=== PATIENT | female | born 1935 | race Caucasian/White ===

== ENCOUNTER 2020-06-12 19:06 | Emergency (ER) | payer MEDICARE, OTHER ==
[~2020-06-12] VITALS: Ht 157.5 cm; Wt 56.2 kg
[~2020-06-12 19:06] MED LIST: ASPIRIN325 MG PO; ASPIRIN81 MG PO; ATENOLOL50 MG PO; EVISTA60 MG PO; FERROUS SULFAT324 MG PO; NORCO 7.5-3251 EACH PO; NORVASC5 MG PO; TRICOR145 MG PO; VASOTEC5 MG PO
--- NOTE | 2020-06-12 19:38 | Emergency Department Note ---
History of Present Illnes History of Present Illness Chief Complaint: General Medicine Complaints History of Present Illness This is a 84 year old female PRESENTS TO ED SP FALL; PT STATES, "I LOST MY BALANCE AND HIT THE BACK OF MY HEAD ON THE GROUND." DENIES LOC, ABRASION NOTED TO BACK OF HEAD . Historian: Patient, Family Member Arrival Mode: Car Onset (how long ago): hour(s) (1) Location: HEAD Quality: PAIN, SWELLING, BLEEDING Radiation: Reports non-radiation Severity: moderate Onset quality: sudden Duration (how long): hour(s) (1) Timing of current episode: constant Progression: unchanged Chronicity: new Context: Reports trauma/injury ( ABOVE) Relieving factors: none Exacerbating factors: none Associated symptoms: Reports other (LOW BACK PAIN) Treatments prior to arrival: none Past Medical/Family History Physician Review I have reviewed the patient's past medical and family history. Any updates have been documented here. Past Medical History Recent Fever: No Clinical Suspicion of Infectio: No New/Unexplained Change in Ment: No Social History Smoking Cessation: Never Smoker Alcohol Use: None Any Illegal Drug Use: No Family History Family history of heart diseas: No Review of Systems Review of Systems Constitutional: Reports no symptoms EENTM: Reports no symptoms Cardiovascular: Reports no symptoms Respiratory: Reports no symptoms Gastrointestinal: Reports no symptoms Genitourinary: Reports no symptoms Musculoskeletal: Reports as per HPI Integumentary: Reports no symptoms Neurological: Reports no symptoms Psychological: Reports no symptoms Endocrine: Reports no symptoms Hematological/Lymphatic: Reports no symptoms Physical Exam Related Data Allergies: Uncoded Allergies: SULFA (Allergy, Unknown, 06/07/15) Triage Vital Signs Vital Signs Date Time Temp Pulse Resp B/P (MAP) Pulse Ox O2 Delivery O2 Flow Rate FiO2 06/12/20 19:21 97.7 64 16 167/60 100 Room Air Vital signs reviewed: Yes Physical Exam CONSTITUTIONAL Constitutional: Present well-developed, Present well-nourished; Absent distressed HENT HENT: Present normocephalic, Present oropharynx clear/moist, Present nose n ormal, Present other (PT WITH ABRASION AND CONTUSION TO LEFT PARIETAL/OCCIPTAL SCALP) HENT L/R: Present left ext ear normal, Present right ext ear normal EYES Eyes: Reports PERRL, Reports conjunctivae normal NECK Neck: Present ROM normal PULMONARY Pulmonary: Present effort normal, Present breath sounds normal CARDIOVASCULAR Cardiovascular: Present regular rhythm, Present heart sounds normal, Present capillary refill normal, Present normal rate GASTROINTESTINAL Abdominal: Present soft, Present nontender, Present bowel sounds normal GENITOURINARY Genitourinary: Present exam deferred SKIN Skin: Present warm, Present dry MUSCULOSKELETAL Musculoskeletal: Present ROM normal, Present tenderness (MILD T8 TO T10 NO VERTEBREAL STEP OFFS, L3 TO L5 NO VERTERBRAL STEP OFFS) NEUROLOGICAL Neurological: Present alert, Present oriented x 3, Present no gross motor or sensory deficits PSYCHOLOGICAL Psychological: Present mood/affect normal, Present judgement normal Results Imaging Imaging results reviewed: Yes Impressions X-RAY THORACIC SPINE 3 VIEWS, X-RAY LUMBAR SPINE 4 VIEWS HISTORY: Pain. COMPARISON: None available. FINDINGS: Rightward convex curvature of the thoracolumbar spine. Osseous demineralization. Aortic calcifications. Surgical clips in the right axilla. No definitive fracture. Degenerative changes throughout spine. No dislocations. Left hip total arthroplasty hardware partially visualized. Calcific uterine fibroids. Suspect a 1.9 cm calcified gallstone or right renal calculus. IMPRESSION: No radiographic evidence of fracture. Osseous demineralization. A radiographically occult fracture cannot be excluded in the setting of osteoporosis. Dextroscoliosis of the thoracolumbar spine, and levoscoliosis of the lumbar spine.. Degenerative changes throughout spine hips and pelvis. Suspect a 1.9 cm calcified gallstone or right renal calculus and possibly a 1.2 cm left renal calculus. Signed by: Parmjit Aldridge DO on 06/12/2020 9:14 PM Dictated By: PARMJIT ALDRIDGE DO 13 Transcribed By: JACKIE on 06/12/202113 COPY TO: HAWA ROBLES MD~ Procedure: [id number] CT/CT BRAIN WO Exam Date: Exam Time: REPORT STATUS: Signed EXAMINATION: Head CT without contrast. HISTORY:Trauma, fall. COMPARISON:None. TECHNIQUE: Multidetector axial images were obtained from the foramen magnum to the vertex without contrast. The images were reconstructed using brain and bone algorithms. Thin section brain images were reformatted into coronal and sagittal planes. Dose modulation, iterative reconstruction, and/or weight based adjustment of the mA/kV was utilized to reduce the radiation dose to as low as reasonably achievable. Intravenous contrast: None IMAGE QUALITY: Acceptable. FINDINGS: Skull/scalp: Large left parieto-occipital scalp soft tissue edema/hematoma. No soft tissue emphysema or radiopaque foreign body. No acute depressed or displaced calvarial fracture. No lytic or blastic. lesions. No surgical changes. Parenchyma: Nonspecific bilateral frontoparietal confluent periventricular and patchy subcortical white matter hypodensity are likely related to small vessel ischemic changes. No acute hemorrhage, mass or acute major vascular territorial infarct. Arteries: No density suggestive of thrombosis. Mild atherosclerotic calcification in bilateral carotid siphon. Dural sinuses: No abnormal density suggestive of thrombosis. Ventricles: Mild compensated dilatation due to volume loss. No hydrocephalus. Extra-axial spaces: No abnormal density. Brain volume: Mild generalized cerebral volume loss. Craniocervical junction: No mass, Chiari malformation, or basilar invagination. Sella: No mass. Paranasal/mastoid sinuses: Imaged portions unremarkable. IMPRESSION: 1. Large left parieto-occipital scalp soft tissue edema/hematoma. No acute fracture. 2. No acute posttraumatic intracranial abnormality. 3. Moderate supratentorial white matter microvascular ischemic changes. 4. Mild generalized cerebral volume loss. Signed by: Dr. Reva Ross M.D. on 06/12/2020 8:29 PM Dictated By: REVA ROSS MD 28 Transcribed By: JACKIE on 06/12/202028 COPY TO: HAWA ROBLES MD~ Procedure: [id number] CT/CT CERVICAL SPINE WO Exam Date: Exam Time: REPORT STATUS: Signed History: Trauma, fall. Comparison studies: None Technique: Axial images were obtained through the cervical region.. Coronal and sagittal images reconstructed from the axial data. Dose modulation, iterative reconstruction, and/or weight based adjustment of the mA/kV was utilized to reduce the radiation dose to as low as reasonably achievable. Intravenous contrast: None Findings: Fractures: None. Soft tissue injuries: None. Atlantoaxial articulation: Intact. Alignment: Normal lordosis. No scoliosis. 3 mm grade 1 retrolisthesis at level C5-C6. Cervicomedullary junction: No abnormalities. The foramen magnum is patent. Soft tissues: Atherosclerotic calcification in bilateral carotid bulb. Vertebrae: No fractures, infection or neoplasm. Degenerative changes: Moderate degenerative changes in the anterior atlantodental joint. C2-C3: Advanced bilateral facet arthrosis without significant foraminal stenosis. C3-C4: Mild right foraminal stenosis due to facet and uncovertebral arthrosis. C5-C6: Moderate degenerative disc disease. Severe right foraminal stenosis due to facet and uncovertebral arthrosis. C6-C7: Mild left foraminal stenosis due to facet and uncovertebral arthrosis. Incidental finding: Pleural-based airspace opacities with calcification in bilateral (right more than left) lung apices may represent scarring. Incidental heterogeneous nodular mass centered in the posterior aspect of left lobe of thyroid gland/tracheoesophageal groove approximately measures 3.3 x 2.3 x 2 cm (SAT) may represent mass arising from the thyroid gland or parathyroid gland. IMPRESSION: 1. No acute cervical spine fracture or dislocation. 2. Ligament, spinal cord and or vascular abnormalities cannot be excluded on the basis of this examination. 3. Multilevel cervical spondylosis as detailed above. 4. Heterogeneous nodular mass along the posterior aspect of left lobe of thyroid gland/tracheoesophageal groove, can be further evaluated with dedicated nonemergent ultrasonogram for further assessment. Signed by: Dr. Reva Ross M.D. on 06/12/2020 8:39 PM Dictated By: REVA ROSS MD 38 Transcribed By: JACKIE on 06/12/202038 COPY TO: HAWA ROBLES MD~ Assessment & Plan Medical Decision Making MDM PT S/P FALL CT BRAIN, CT CERVICAL SPINE, XRAYS T SPINE, L SPINE ORDERED TO EVAL FOR FRACTURES, INTRACRANIAL INJURY(SUBDURAL BLEED, CONTUSION) Assessment & Plan Final Impression: (1) Abrasion head (2) Contusion of head (3) Hematoma of parietal scalp Depart Disposition: HOME, SELF-CARE Last Vital Signs Date Time Temp Pulse Resp B/P (MAP) Pulse Ox O2 Delivery O2 Flow Rate FiO2 06/12/20 19:21 97.7 64 16 167/60 100 Room Air Home Meds Reported Medications Hydrocodone Bit/Acetaminophen (NORCO 7.5-325 TABLET) 1 Each Tablet, 1 EA PO Q4HR PRN for PAIN, TAB 06/13/16 Amlodipine Besylate (NORVASC) 5 Mg Tab, 5 MG PO DAILY, #30 TAB 06/13/16 Ferrous Sulfate (FERROUS SULFATE) 324 Mg Tablet.dr, 324 MG PO DAILY 06/13/16 Aspirin (ASPIRIN) 325 Mg Tablet, 325 MG PO BID, TAB 06/13/16 Raloxifene Hcl (EVISTA) 60 Mg Tablet, 60 MG PO DAILY, #30 TAB 06/07/15 Fenofibrate (TRICOR) 145 Mg Tab, 145 MG PO DAILY, #30 TAB 06/07/15 Atenolol (ATENOLOL) 50 Mg Tablet, 25 MG PO DAILY 06/07/15 HAWA ROBLES MD Jun 12, 2020 19:38
--- NOTE | 2020-06-12 20:32 | Diagnostic Imaging Report ---
EXAMINATION: Head CT without contrast. HISTORY:Trauma, fall. COMPARISON:None. TECHNIQUE: Multidetector axial images were obtained from the foramen magnum to the vertex without contrast. The images were reconstructed using brain and bone algorithms. Thin section brain images were reformatted into coronal and sagittal planes. Dose modulation, iterative reconstruction, and/or weight based adjustment of the mA/kV was utilized to reduce the radiation dose to as low as reasonably achievable. Intravenous contrast: None IMAGE QUALITY: Acceptable. FINDINGS: Skull/scalp: Large left parieto-occipital scalp soft tissue edema/hematoma. No soft tissue emphysema or radiopaque foreign body. No acute depressed or displaced calvarial fracture. No lytic or blastic. lesions. No surgical changes. Parenchyma: Nonspecific bilateral frontoparietal confluent periventricular and patchy subcortical white matter hypodensity are likely related to small vessel ischemic changes. No acute hemorrhage, mass or acute major vascular territorial infarct. Arteries: No density suggestive of thrombosis. Mild atherosclerotic calcification in bilateral carotid siphon. Dural sinuses: No abnormal density suggestive of thrombosis. Ventricles: Mild compensated dilatation due to volume loss. No hydrocephalus. Extra-axial spaces: No abnormal density. Brain volume: Mild generalized cerebral volume loss. Craniocervical junction: No mass, Chiari malformation, or basilar invagination. Sella: No mass. Paranasal/mastoid sinuses: Imaged portions unremarkable. IMPRESSION: 1. Large left parieto-occipital scalp soft tissue edema/hematoma. No acute fracture. 2. No acute posttraumatic intracranial abnormality. 3. Moderate supratentorial white matter microvascular ischemic changes. 4. Mild generalized cerebral volume loss. Signed by: Dr. Reva Ross M.D. on 06/12/2020 8:29 PM
--- OUTSIDE RECORDS SUMMARY | 2020-06-12 20:40 | XMS REPORT | Continuity of Care Document ---
Author Author [facility] t Organization [facility] Address [address] [place] [address] Phone Unavailable Care Team Providers Care Etcher Hand Name Role Phone Kourtney ROBLES Attphys Unavailable Problems This patient has no known problems. Allergies, Adverse Reactions, Alerts This patient has no known allergies or adverse reactions. Medications This patient has no known medications. Procedures This patient has no known procedures. Results Test Description Test Time Test Comments Results Result Comments Source CT BRAIN WO 2020-06-12 20:20:00 [facility] 1935 Sex: F [facility] [address] [place], [place] [address] Patient Name: GARETT GRAVES MR #: [id number] : 1935 Age/Sex: 84/F Req #: [id number] [facility] Physician: Ordered by: HAWA ROBLES MD Report #: [id number] Location: ER Room/Bed: Procedure: [id number] CT/CT BRAIN WO Exam Date: Exam Time: REPORT STATUS: Signed EXAMINATION: Head CT without contrast. HISTORY:Trauma, fall. COMPARISON:None. TECHNIQUE: Multidetector axial images were obtained from the foramen magnum to the vertex without contrast. The images were reconstructed using brain and bone algorithms. Thin section brain images were reformatted into coronal and sagittal planes. Dose modulation, iterative reconstruction, and/or weight based adjustment of the mA/kV was utilized to reduce the radiation dose to as low as reasonably achievable. Intravenous contrast: None IMAGE QUALITY: Acceptable. FINDINGS: Skull/scalp: Large left parieto-occipital scalp soft tissue edema/hematoma. No soft tissue emphysema or radiopaque foreign body. No acute depressed or displaced calvarial fracture. No lytic or blastic. lesions. No surgical changes. Parenchyma: Nonspecific bilateral frontoparietal confluent periventricular and patchy subcortical white matter hypodensity are likely related to small vessel ischemic changes. No acute hemorrhage, mass or acute major vascular territorial infarct. Arteries: No density suggestive of thrombosis. Mild atherosclerotic calcification in bilateral carotid siphon. Dural sinuses: No abnormal density suggestive of thrombosis. Ventricles: Mild compensated dilatation due to volume loss. No hydrocephalus. Extra-axial spaces: No abnormal density. Brain volume: Mild generalized cerebral volume loss. Craniocervical junction: No mass, Chiari malformation, or basilar invagination. Sella: No mass. Paranasal/mastoid sinuses: Imaged portions unremarkable. IMPRESSION: 1. Large left parieto-occipital scalp soft tissue edema/hematoma. No acute fracture. 2. No acute posttraumatic intracranial abnormality. 3. Moderate supratentorial white matter microvascular ischemic changes. 4. Mild generalized cerebral volume loss. Signed by: Dr. Reva Ross M.D. on 06/12/2020 8:29 PM Dictated By: REVA ROSS MD 28 Transcribed By: JACKIE on 06/12/202028 COPY TO: HAWA ROBLES MD BREAST ULTRASOUND BILATERAL 2019-07-24 08:27:50 - BREAST ULTRASOUND BILATERALULTRASOUND OF BOTH BREASTS AND BOTH AXILLA: 07/20/2019CLINICAL: Followup to previous exam. Comparison is made to exams dated 07/20/2019 mammogram, 07/17/2018 ultrasound, 07/15/2017 ultrasound, and [facility] Real-time ultrasound of both breasts and both axilla and clinical breast exam were performed. No abnormalities were seen sonographically in the left breast or either axilla. The right breast has been surgically removed. The chest wall shows no abnormalities. IMPRESSION: BENIGN There is no sonographic evidence of malignancy. Patient has been informed that she should have screening mammogram and supplemental ultrasound in 1 year.Marce Rivera M.D. dm/:07/24/2019 08:27:50 copy to: Tylor Davis MD, ph: [phone], fax: [phone] Technologist: MIKEY CORTES, [facility]: BIRADS 1-2 Combo FU Letter Ultrasound BI- RADS: 2 Benign DIAG MAMM LEFT KORY CAD DIGITAL 2019-07-20 14:10:46 - DIAG MAMM LEFT KORY CAD DIGITALUNILATERAL LEFT DIGITAL DIAGNOSTIC MAMMOGRAM 3D/2D WITH CAD: 07/20/2019CLINICAL: Previous breast cancer. Digital breast tomosynthesis was performed in addition to routine CC and MLO views. Current mammographic images were evaluated by either a [employer] M-Vu or a [employer] ImageChecker CAD (computer aided detection system). Comparison is made to exams dated 07/17/2018 mammogram, 07/15/2017 mammogram, and 07/10/2016 [facility]. There are scattered fibroglandular tissues in the left breast. There are benign vascular calcifications in the left breast. No suspicious mass, architectural distortion, malignant type calcification, or lymph node abnormality detected. IMPRESSION: INCOMPLETE: ADDITIONAL IMAGING EVALUATION NEEDEDBilateral ultrasound pending for additional evaluation. Marce Rivera M.D. dm/:07/20/2019 14:10:46 Entry: - 07/24/2019 08:32:25copy to: Tlyor Davis MD, ph: [phone], fax: [phone] Technologist: Janice Shelby FW, [facility]-Mammogram BI-RADS: 0 Incomplete: Additional Imaging Evaluation Needed BREAST ULTRASOUND BILATERAL 2018-07-17 16:23:35 - DIAG MAMM BILATERAL KORY CAD DIGITALBILATERAL DIGITAL DIAGNOSTIC MAMMOGRAM 3D/2D WITH CAD: 07/17/2018CLINICAL: Previous breast cancer. Digital breast tomosynthesis was performed in addition to routine CC and MLO views. Current mammographic images were evaluated by either a [employer] M-Vu or a [employer] ImageChecker CAD (computer aided detection system). Comparison is made to exams dated 07/15/2017 m ammogram, 07/10/2016 mammogram, and 08/30/2015 mammogram - [facility]-. The tissue of the right breast is predominantly fatty. There are scattered fibroglandular tissues in the left breast. The right breast has been surgically removed. No suspicious mass, architectural distortion, malignant type calcification, or lymph node abnormality detected. INCOMPLETE ASSESSMENT: ADDITIONAL IMAGING EVALUATION RECOMMENDEDUltrasound pending for additional evaluation. Resume annual screening mammography in one year. - BREAST ULTRASOUND BILATERALULTRASOUND OF BOTH BREASTS AND BOTH AXILLA: 2017Comparison is made to exams dated 07/15/2017 mammogram, 07/10/2016 mammogram, and 08/30/2015 [facility]. Real-time ultrasound of both breasts and both axilla was performed. No abnormalities were seen sonographically in the left breast or either axilla. The right breast has been surgically removed. The chest wall shows no abnormalities. Clinical breast exam was unremarkable. IMPRESSION: BENIGN There is no sonographic evidence of malignancy. Patient has been informed that she should have a screening mammogram and supplemental ultrasound in 1 year.Marce Rivera M.D. dm/:07/17/2018 16:23:35 copy to: Tylor Davis MD, ph: [phone], fax: [phone] Technologist: Yu Monge , [facility]- letter sent: BIRADS 1-2 Combo FU Letter Mammogram BI-RADS: 0 Indeterminate Ultrasound BI-RADS: 2 Benign DIAG MAMM BILATERAL KORY CAD DIGITAL 2018-07-17 16:23:35 - DIAG MAMM BILATERAL KORY CAD DIGITALBILATERAL DIGITAL DIAGNOSTIC MAMMOGRAM 3D/2D WITH CAD: 07/17/2018CLINICAL: Previous breast cancer. Digital breast tomosynthesis was performed in addition to routine CC and MLO views. Current mammographic images were evaluated by either a [employer] M-Vu or a [employer] ImageChecker CAD (computer aided detection system). Comparison is made to exams dated 07/15/2017 m ammogram, 07/10/2016 mammogram, and 08/30/2015 mammogram - [facility]-. The tissue of the right breast is predominantly fatty. There are scattered fibroglandular tissues in the left breast. The right breast has been surgically removed. No suspicious mass, architectural distortion, malignant type calcification, or lymph node abnormality detected. INCOMPLETE ASSESSMENT: ADDITIONAL IMAGING EVALUATION RECOMMENDEDUltrasound pending for additional evaluation. Resume annual screening mammography in one year. - BREAST ULTRASOUND BILATERALULTRASOUND OF BOTH BREASTS AND BOTH AXILLA: 2017Comparison is made to exams dated 07/15/2017 mammogram, 07/10/2016 mammogram, and 08/30/2015 mammogram - [facility]-. Real-time ultrasound of both breasts and both axilla was performed. No abnormalities were seen sonographically in the left breast or either axilla. The right breast has been surgically removed. The chest wall shows no abnormalities. Clinical breast exam was unremarkable. IMPRESSION: BENIGN There is no sonographic evidence of malignancy. Patient has been informed that she should have a screening mammogram and supplemental ultrasound in 1 year.Marce Rivera M.D. dm/:07/17/2018 16:23:35 copy to: Tylor Davis MD, ph: [phone], fax: [phone] Technologist: Yu Monge , [facility]- FWletter sent: BIRADS 1-2 Combo FU Letter Mammogram BI-RADS: 0 Indeterminate Ultrasound BI-RADS: 2 Benign
--- NOTE | 2020-06-12 20:42 | Diagnostic Imaging Report ---
History: Trauma, fall. Comparison studies: None Technique: Axial images were obtained through the cervical region.. Coronal and sagittal images reconstructed from the axial data. Dose modulation, iterative reconstruction, and/or weight based adjustment of the mA/kV was utilized to reduce the radiation dose to as low as reasonably achievable. Intravenous contrast: None Findings: Fractures: None. Soft tissue injuries: None. Atlantoaxial articulation: Intact. Alignment: Normal lordosis. No scoliosis. 3 mm grade 1 retrolisthesis at level C5-C6. Cervicomedullary junction: No abnormalities. The foramen magnum is patent. Soft tissues: Atherosclerotic calcification in bilateral carotid bulb. Vertebrae: No fractures, infection or neoplasm. Degenerative changes: Moderate degenerative changes in the anterior atlantodental joint. C2-C3: Advanced bilateral facet arthrosis without significant foraminal stenosis. C3-C4: Mild right foraminal stenosis due to facet and uncovertebral arthrosis. C5-C6: Moderate degenerative disc disease. Severe right foraminal stenosis due to facet and uncovertebral arthrosis. C6-C7: Mild left foraminal stenosis due to facet and uncovertebral arthrosis. Incidental finding: Pleural-based airspace opacities with calcification in bilateral (right more than left) lung apices may represent scarring. Incidental heterogeneous nodular mass centered in the posterior aspect of left lobe of thyroid gland/tracheoesophageal groove approximately measures 3.3 x 2.3 x 2 cm (SAT) may represent mass arising from the thyroid gland or parathyroid gland. IMPRESSION: 1. No acute cervical spine fracture or dislocation. 2. Ligament, spinal cord and or vascular abnormalities cannot be excluded on the basis of this examination. 3. Multilevel cervical spondylosis as detailed above. 4. Heterogeneous nodular mass along the posterior aspect of left lobe of thyroid gland/tracheoesophageal groove, can be further evaluated with dedicated nonemergent ultrasonogram for further assessment. Signed by: Dr. Reva Ross M.D. on 06/12/2020 8:39 PM
--- NOTE | 2020-06-12 21:17 | Diagnostic Imaging Report ---
X-RAY THORACIC SPINE 3 VIEWS, X-RAY LUMBAR SPINE 4 VIEWS HISTORY: Pain. COMPARISON: None available. FINDINGS: Rightward convex curvature of the thoracolumbar spine. Osseous demineralization. Aortic calcifications. Surgical clips in the right axilla. No definitive fracture. Degenerative changes throughout spine. No dislocations. Left hip total arthroplasty hardware partially visualized. Calcific uterine fibroids. Suspect a 1.9 cm calcified gallstone or right renal calculus. IMPRESSION: No radiographic evidence of fracture. Osseous demineralization. A radiographically occult fracture cannot be excluded in the setting of osteoporosis. Dextroscoliosis of the thoracolumbar spine, and levoscoliosis of the lumbar spine.. Degenerative changes throughout spine hips and pelvis. Suspect a 1.9 cm calcified gallstone or right renal calculus and possibly a 1.2 cm left renal calculus. Signed by: Parmjit Aldridge DO on 06/12/2020 9:14 PM
[2020-06-12 22:07] VITALS: BP 156/62
== END 2020-06-12 22:08 | disposition home or self-care (01) ==
LOC: ER 19:33
DX: S00.83XA Contusion of other part of head, initial encounter (principal); M54.6 Pain in thoracic spine; M54.5 Low back pain; W01.0XXA Fall on same level from slipping, tripping and stumbling without subsequent striking against object, initial encounter; Y93.01 Activity, walking, marching and hiking; I10 Essential (primary) hypertension; I25.10 Atherosclerotic heart disease of native coronary artery without angina pectoris; Z96.642 Presence of left artificial hip joint
CPT/HCPCS: 70450; 72072; 72110; 72125; 99283

== ENCOUNTER → 2020-06-27 | Outpatient (CLI) | payer MEDICARE | LOC: RAD 12:32 | PROVIDERS: ATTEND Internal Medicine | DX: I50.32 Chronic diastolic (congestive) heart failure (principal) | CPT/HCPCS: 71046 ==

== ENCOUNTER → 2020-09-02 | Outpatient (CLI) | payer MEDICARE | LOC: CT 16:03 | PROVIDERS: ATTEND Internal Medicine Cardiovascular Disease | DX: I50.1 Left ventricular failure, unspecified (principal); R60.9 Edema, unspecified; N18.30 Chronic kidney disease, stage 3 unspecified | CPT/HCPCS: 36415; 71046; 74176; 85379 ==

== ENCOUNTER → 2020-09-05 | Outpatient (CLI) | payer MEDICARE | LOC: NM 11:19 | PROVIDERS: ATTEND Internal Medicine Cardiovascular Disease | DX: I50.1 Left ventricular failure, unspecified (principal); R60.9 Edema, unspecified; N18.30 Chronic kidney disease, stage 3 unspecified | CPT/HCPCS: 78597; A9540 ==